=== PATIENT | female | born 2000 | race Two or more races ===

== ENCOUNTER 2020-01-16 22:28 | Emergency (ER) | payer MEDICAID ==
[~2020-01-16] VITALS: Ht 160 cm; Wt 81.6 kg
--- NOTE | 2020-01-16 22:45 | NUR ---
BIBS FOR C/O FEVER,SORETHROAT X3 DAYS. PLACED ON MONITOR AND PULSE OX. VSS. DAUGHERTY AT BEDSIDE FOR EVAL. WILL COTNINUE TO MONITOR.
[2020-01-16] MEDS ORDERED: KETOROLAC TROMETHAMINE INJ 60 MG/2 ML VIAL IM ONE ×2 (23:00→23:14)
--- NOTE | 2020-01-16 23:00 | NUR ---
URINE SENT TO LAB. AWAITING RESULTS TO GIVE TORADOL SHOT.
--- NOTE | 2020-01-17 | NUR ---
Patient discharged to home in stable condition. Written and verbal after care instructions given. Patient verbalizes understanding of instruction. Pt ambulated with gait.
[2020-01-17 00:01] VITALS: BP 121/75
== END 2020-01-17 00:01 | disposition home or self-care (01) ==
LOC: ER 22:35
DX: J02.9 Acute pharyngitis, unspecified (principal)
CPT/HCPCS: 84703; 96372; 99283; J1885

== ENCOUNTER 2020-10-21 21:50 | Emergency (ER) | payer MEDICAID ==
[~2020-10-21] VITALS: Ht 162.6 cm; Wt 81.6 kg
[2020-10-21 21:54] VITALS: BP 132/67
[2020-10-21] MEDS ORDERED: predniSONE 20 MG TABLET ONE (22:24)
[2020-10-21] MEDS ORDERED: FAMOTIDINE (20 MG) 20 MG TABLET ONE (22:24)
[2020-10-21] MEDS ORDERED: diphenhydrAMINE HCL 50 MG CAPSULE ONE (22:24)
[2020-10-21] MEDS ORDERED: diphenhydrAMINE HCL 50 MG CAPSULE PO ONE (22:30)
[2020-10-21] MEDS ORDERED: predniSONE 10 MG TABLET PO ONE (22:30)
[2020-10-21] MEDS ORDERED: FAMOTIDINE (20 MG) 20 MG TABLET PO ONE (22:30)
== END 2020-10-21 22:31 | disposition home or self-care (01) ==
LOC: ER 21:55
DX: R60.0 Localized edema (principal); T36.3X5A Adverse effect of macrolides, initial encounter; Y92.89 Other specified places as the place of occurrence of the external cause
CPT/HCPCS: 99284; J7512; Q0163